=== PATIENT | female | born 2005 | race Caucasian/White ===

== ENCOUNTER 2023-02-21 21:22 | Inpatient (IN) | payer OTHER ==
[~2023-02-21] VITALS: Ht 152.4 cm; Wt 67.6 kg
[2023-02-21] MEDS ORDERED: SERT-162 PO (21:35)
[2023-02-21] MEDS ORDERED: BUSP10TA23 PO (21:35)
[2023-02-21 22:05] LABS: BASOPHILS % (AUTO) 0.4 % (0.0-2.0); EOSINOPHILS % (AUTO) 0.3 % (1.0-6.0); HEMATOCRIT 38.3 % (36-46); HEMOGLOBIN 12.1 g/dL (12.0-16.0); LYMPHOCYTES # (AUTO) 2.1 K/uL (1.0-4.8); LYMPHOCYTES % (AUTO) 34.8 % (22.0-44.0); MEAN CORPUSCULAR HEMOGLOBIN 23.9 pg (26.0-34.0); MEAN CORPUSCULAR HGB CONC 31.5 G/dL (31.0-37.0); MEAN CORPUSCULAR VOLUME 76 fL (80-100); MONOCYTES # (AUTO) 0.5 K/uL (0.1-1.0); MONOCYTES % (AUTO) 9.1 % (2.0-9.0); NEUTROPHILS # (AUTO) 3.3 K/uL (1.8-7.7); NEUTROPHILS % (AUTO) 55.4 % (40.0-70.0); PLATELET COUNT (AUTO) 308 K/uL (150-450); RED BLOOD CELL COUNT(AUTO) 5.04 MIL/uL (4.00-5.20); RED CELL DISTRIBUTION WIDTH 18.2 % (11.5-14.5)
[2023-02-21 22:18] LABS: ALANINE AMINOTRANSFERASE 19 U/L (12-78); ALBUMIN 4.2 g/dL (3.4-5.0); ALKALINE PHOSPHATASE 85 U/L (46-116); ANION GAP 10 mmol/L (8-16); ASPARTATE AMINOTRANSFERASE 21 U/L (15-37); BILIRUBIN,TOTAL 0.4 mg/dL (0.1-1.0); CARBON DIOXIDE 27 mmol/L (22-29); CHLORIDE 105 mmol/L (98-107); CREATININE 0.68 mg/dL (0.60-1.30); GLOMERULAR FILTR. RATE CALC > 60 mL/min (>60); GLUCOSE,RANDOM 91 mg/dL (70-110); POTASSIUM 3.9 mmol/L (3.5-5.1); SODIUM SERUM 142 mmol/L (136-145); TOTAL PROTEIN, SERUM 7.6 g/dL (6.4-8.2); UREA NITROGEN, BLOOD 6 mg/dL (7-18)
[2023-02-21 22:23] LABS: CALCIUM, TOTAL 9.3 mg/dL (8.8-10.5)
[2023-02-21 23:44] LABS: COVID AG,FIA SOURCE NASAL SWAB
[2023-02-21 23:52] LABS: AMPHET/METH SCREEN,URINE NEGATIVE (NEGATIVE); BARBITURATE SCREEN, URINE NEGATIVE (NEGATIVE); BENZODIAZEPINES SCREEN,URINE NEGATIVE (NEGATIVE); CANNABINOID SCREEN,URINE POSITIVE (NEGATIVE); COCAINE SCREEN,URINE NEGATIVE (NEGATIVE); METHADONE SCREEN, URINE NEGATIVE (NEGATIVE); OPIATE SCREEN,URINE NEGATIVE (NEGATIVE); PHENCYCLIDINE SCREEN,URINE NEGATIVE (NEGATIVE)
[2023-02-22] MEDS ORDERED: ZOLPIDEM TARTRATE 10 MG TABLET PO PRN (00:45)
[2023-02-22] MEDS ORDERED: LORazepam 2 MG TABLET PO ONE (01:00)
[2023-02-22] MEDS ORDERED: IBUPROFEN 600 MG TABLET PO ONE (01:00)
[2023-02-22 01:25] LABS: APPEARANCE,URINE HAZY (CLEAR); BILIRUBIN,URINE NEGATIVE (NEGATIVE); GLUCOSE, URINE (UA) NEGATIVE (NEGATIVE); LEUKOCYTE ESTERASE ,URINE LARGE (NEGATIVE); NITRATE,URINE NEGATIVE (NEGATIVE); OCCULT BLOOD,URINE LARGE (NEGATIVE); PROTEIN,URINE 30-70 mg/dL (NEGATIVE); SPECIFIC GRAVITIY, URINE 1.009 (1.003-1.030); UROBILINOGEN,URINE <=1.0 mg/dL (<=1.0)
[2023-02-22 01:28] LABS: BACTERIA,URINE Few /HPF (None Seen); RBC,URINE >100 /HPF (0-2); SQUAMOUS EPITHELIAL CELL,UR Few /LPF (None Seen)
[2023-02-22 02:29] VITALS: BP 118/89
[2023-02-22 02:34] VITALS: BP 118/89
[2023-02-22] MEDS ORDERED: ALBUTEROL SULFATE HFA 90 MCG/PUFF 8 GM INHALER IH PRN (06:45)
[2023-02-22] MEDS ORDERED: NICOTINE 14 MG/24 HOUR PATCH TD PRN (06:45)
[2023-02-22] MEDS ORDERED: DOCUSATE SODIUM 100 MG CAPSULE PO PRN (06:45)
[2023-02-22] MEDS ORDERED: PETROLATUM,WHITE 28 GM JELLY TP PRN (06:45)
[2023-02-22] MEDS ORDERED: CloNIDine HCL 0.1 MG TABLET PO PRN (06:45)
[2023-02-22] MEDS ORDERED: MAGNESIUM HYDROXIDE SUSPENSION 30 ML UDCUP PO PRN (06:45)
[2023-02-22] MEDS ORDERED: LOPERAMIDE HCL 2 MG CAPSULE PO PRN (06:45)
[2023-02-22] MEDS ORDERED: GuaiFENesin/D-METHORPHAN [SUGAR-FREE] 200-20MG/10 ML SYRUP UDCUP PO PRN (06:45)
[2023-02-22] MEDS ORDERED: ONDANSETRON HCL 4 MG TABLET PO PRN (06:45)
[2023-02-22] MEDS ORDERED: MAG HYDROX/AL HYDROX/SIMETH ES 30 ML SUSPENSION UDCUP PO PRN (06:45)
[2023-02-22] MEDS: CEPHALEXIN MONOHYDRATE 250 MG CAPSULE PO SCH ×3 (08:00→23:35)
[2023-02-22 10:42] VITALS: BP 127/84
[2023-02-22] MEDS: BusPIRone HCL 10 MG TABLET PO SCH ×2 (10:55→20:33)
[2023-02-22] MEDS: SERTRALINE HCL 100 MG TABLET PO SCH (10:55)
[2023-02-22 20:20] VITALS: BP 147/98
[2023-02-22] MEDS: HALOPERIDOL 5 MG TABLET PO PRN (20:47)
[2023-02-22] MEDS: LORazepam 2 MG TABLET PO PRN (20:47)
[2023-02-23 09:27] VITALS: BP 109/65
[2023-02-23] MEDS: CEPHALEXIN MONOHYDRATE 250 MG CAPSULE PO SCH ×3 (11:16→23:07)
[2023-02-23] MEDS: BusPIRone HCL 10 MG TABLET PO SCH ×2 (11:16→20:31)
[2023-02-23] MEDS: SERTRALINE HCL 100 MG TABLET PO SCH (11:16)
[2023-02-23] MEDS: HALOPERIDOL 5 MG TABLET PO PRN (19:53)
[2023-02-23] MEDS: LORazepam 2 MG TABLET PO PRN (19:53)
[2023-02-23 21:05] VITALS: BP 124/80
[2023-02-24] MEDS: LORazepam 2 MG TABLET PO PRN ×2 (04:59→10:53)
[2023-02-24] MEDS: BusPIRone HCL 10 MG TABLET PO SCH ×2 (08:27→20:49)
[2023-02-24] MEDS: CEPHALEXIN MONOHYDRATE 250 MG CAPSULE PO SCH ×3 (08:27→23:33)
[2023-02-24] MEDS: SERTRALINE HCL 100 MG TABLET PO SCH (08:27)
[2023-02-24 10:43] VITALS: BP 117/4
[2023-02-24] MEDS: HALOPERIDOL 5 MG TABLET PO PRN (17:05)
[2023-02-24 17:13] VITALS: BP 105/63
[2023-02-24 20:29] VITALS: BP 117/78
[2023-02-24] MEDS: TraZODone HCL 50 MG TABLET PO PRN (22:22)
[2023-02-25 09:18] VITALS: BP 92/60
[2023-02-25] MEDS: CEPHALEXIN MONOHYDRATE 250 MG CAPSULE PO SCH ×2 (09:49→16:33)
[2023-02-25] MEDS: BusPIRone HCL 10 MG TABLET PO SCH ×2 (09:49→20:54)
[2023-02-25] MEDS: SERTRALINE HCL 100 MG TABLET PO SCH (09:49)
[2023-02-25 20:08] VITALS: BP 117/81
[2023-02-25] MEDS: TraZODone HCL 50 MG TABLET PO PRN (20:54)
[2023-02-25] MEDS: LORazepam 2 MG TABLET PO PRN (20:54)
[2023-02-26] MEDS: CEPHALEXIN MONOHYDRATE 250 MG CAPSULE PO SCH ×4 (00:14→23:25)
[2023-02-26 09:35] VITALS: BP 97/60
[2023-02-26] MEDS: SERTRALINE HCL 100 MG TABLET PO SCH (10:37)
[2023-02-26] MEDS: BusPIRone HCL 10 MG TABLET PO SCH ×2 (10:37→20:19)
[2023-02-26 16:13] VITALS: BP 103/68
[2023-02-26 18:46] VITALS: BP 103/68
[2023-02-26] MEDS: IBUPROFEN 400 MG TABLET PO PRN (18:46)
[2023-02-26 20:33] VITALS: BP 131/84
[2023-02-26] MEDS: TraZODone HCL 50 MG TABLET PO PRN (22:09)
[2023-02-27 07:36] LABS: COVID AG,FIA SOURCE NASAL SWAB
[2023-02-27 08:52] VITALS: BP 96/61
[2023-02-27] MEDS: SERTRALINE HCL 100 MG TABLET PO SCH (08:57)
[2023-02-27] MEDS: BusPIRone HCL 10 MG TABLET PO SCH ×2 (08:58→20:45)
[2023-02-27 10:38] VITALS: BP 117/75
[2023-02-27] MEDS: IBUPROFEN 400 MG TABLET PO PRN (10:43)
[2023-02-27 16:18] VITALS: BP 112/74
[2023-02-27] MEDS: ACETAMINOPHEN 325 MG TABLET PO PRN (16:23)
[2023-02-27 16:25] VITALS: BP 112/74
[2023-02-27 18:34] VITALS: BP 122/72
[2023-02-27] MEDS: LORazepam 2 MG TABLET PO PRN ×2 (18:43→22:47)
[2023-02-27 20:18] VITALS: BP 115/78
[2023-02-27] MEDS: TraZODone HCL 50 MG TABLET PO PRN (20:45)
[2023-02-28] MEDS: SERTRALINE HCL 100 MG TABLET PO SCH (08:17)
[2023-02-28] MEDS: BusPIRone HCL 10 MG TABLET PO SCH ×2 (08:17→21:05)
[2023-02-28] MEDS: IBUPROFEN 400 MG TABLET PO PRN (08:37)
[2023-02-28 08:39] VITALS: BP 121/81
[2023-02-28] MEDS: ACETAMINOPHEN 325 MG TABLET PO PRN (09:11)
[2023-02-28] MEDS: LORazepam 2 MG TABLET PO PRN ×2 (12:01→18:05)
[2023-02-28 17:34] VITALS: BP 112/69
[2023-02-28 20:53] VITALS: BP 111/77
[2023-02-28] MEDS: TraZODone HCL 50 MG TABLET PO PRN (22:52)
[2023-03-01] MEDS: SERTRALINE HCL 100 MG TABLET PO SCH (08:29)
[2023-03-01] MEDS: BusPIRone HCL 10 MG TABLET PO SCH ×2 (08:29→21:01)
[2023-03-01 10:03] VITALS: BP 123/70
[2023-03-01 16:26] VITALS: BP 125/79
[2023-03-01 16:27] VITALS: BP 125/79
[2023-03-01 20:21] VITALS: BP 135/79
[2023-03-01] MEDS: TraZODone HCL 50 MG TABLET PO PRN (21:01)
[2023-03-01] MEDS: HALOPERIDOL 5 MG TABLET PO PRN (23:05)
[2023-03-02] MEDS ORDERED: BUSP10TA23 PO (04:05)
[2023-03-02] MEDS ORDERED: SERT-440 PO (04:05)
[2023-03-02 08:00] VITALS: BP 98/69
[2023-03-02] MEDS: SERTRALINE HCL 100 MG TABLET PO SCH (08:16)
[2023-03-02] MEDS: BusPIRone HCL 10 MG TABLET PO SCH ×2 (08:16→20:54)
[2023-03-02 16:00] VITALS: BP 95/55
[2023-03-02 20:54] VITALS: BP 122/75
[2023-03-02] MEDS: TraZODone HCL 50 MG TABLET PO PRN (21:23)
[2023-03-03] MEDS: BusPIRone HCL 10 MG TABLET PO SCH (08:15)
[2023-03-03] MEDS: SERTRALINE HCL 100 MG TABLET PO SCH (08:15)
[2023-03-03 08:46] VITALS: BP 130/89
== END 2023-03-03 10:45 | disposition home or self-care (01) | DRG 885 ==
LOC: EMS 21:22 → 3EI 02-22 00:25
PROVIDERS: ADMIT Psychiatry & Neurology Psychiatry; ATTEND Psychiatry & Neurology Psychiatry
DX: F33.2 Major depressive disorder, recurrent severe without psychotic features (principal); R45.851 Suicidal ideations; F41.9 Anxiety disorder, unspecified; G47.00 Insomnia, unspecified; Z20.822 Contact with and (suspected) exposure to COVID-19; F12.20 Cannabis dependence, uncomplicated; M54.50 Low back pain, unspecified; R03.0 Elevated blood-pressure reading, without diagnosis of hypertension; Z79.899 Other long term (current) drug therapy; Z91.51 Personal history of suicidal behavior
CPT/HCPCS: 70450; 80053; 80307; 81001; 84703; 85025; 87086; 87186; 99285; G0480